=== PATIENT | female | born 1940 | race Asian ===

== ENCOUNTER 2017-10-10 08:11 | Emergency (ER) | payer MEDICARE ==
[~2017-10-10] VITALS: Ht 152.4 cm; Wt 31.8 kg
[~2017-10-10 08:11] MED LIST: ATIVAN
[2017-10-10 08:14] VITALS: BP_SYST 126
[2017-10-10] MEDS ORDERED: ONDANSETRON 4 MG ODT TAB PO ONE (08:45)
[2017-10-10] MEDS ORDERED: MORPHINE 4 MG/ML INJ. SYRINGE IM ONE (08:45)
[2017-10-10 09:46] VITALS: BP_SYST 122
== END 2017-10-10 09:46 | disposition home or self-care (01) ==
LOC: SED 08:11
DX: S13.4XXA Sprain of ligaments of cervical spine, initial encounter (principal); K21.9 Gastro-esophageal reflux disease without esophagitis; Z86.73 Personal history of transient ischemic attack (TIA), and cerebral infarction without residual deficits; X58.XXXA Exposure to other specified factors, initial encounter; Y93.84 Activity, sleeping; Y92.89 Other specified places as the place of occurrence of the external cause; Y99.8 Other external cause status
CPT/HCPCS: 96372; 99283; J2270; Q0162

== ENCOUNTER 2017-12-31 14:25 | Emergency (ER) | payer MEDICARE ==
[~2017-12-31] VITALS: Ht 152.4 cm; Wt 31.8 kg
[2017-12-31 14:40] VITALS: BP_SYST 135
[2017-12-31] MEDS ORDERED: KETOROLAC TROMETHAMINE 15 MG VIAL IM ONE (15:45)
[2017-12-31 16:13] VITALS: BP_SYST 135
== END 2017-12-31 16:12 | disposition home or self-care (01) ==
LOC: SED 14:25
DX: K59.00 Constipation, unspecified (principal); K21.9 Gastro-esophageal reflux disease without esophagitis; Z86.73 Personal history of transient ischemic attack (TIA), and cerebral infarction without residual deficits; R03.0 Elevated blood-pressure reading, without diagnosis of hypertension
CPT/HCPCS: 71045; 74021; 96372; 99284; J1885; 99285

== ENCOUNTER 2020-03-13 09:18 | Emergency (ER) | payer MEDICARE, BC ==
[~2020-03-13] VITALS: Ht 149.9 cm; Wt 45.4 kg
[2020-03-13 09:18] VITALS: BP_SYST 116
[2020-03-13] MEDS ORDERED: MORPHINE 4 MG/ML INJ. SYRINGE IVP ONE (09:45)
[2020-03-13] MEDS ORDERED: ONDANSETRON HCL 4 MG/2 ML VIAL IVP ONE (09:45)
[2020-03-13 10:36] VITALS: BP_SYST 116
== END 2020-03-13 10:36 | disposition home or self-care (01) ==
LOC: SED 09:18
DX: S16.1XXA Strain of muscle, fascia and tendon at neck level, initial encounter (principal); K21.9 Gastro-esophageal reflux disease without esophagitis; Z86.79 Personal history of other diseases of the circulatory system; X58.XXXA Exposure to other specified factors, initial encounter; Y93.89 Activity, other specified; Y92.89 Other specified places as the place of occurrence of the external cause; Y99.8 Other external cause status
CPT/HCPCS: 70450; 72125; 96374; 96375; 99285; J2270; J2405

== ENCOUNTER 2020-04-06 10:57 | Emergency (ER) | payer MEDICARE, BC ==
[~2020-04-06] VITALS: Ht 152.4 cm; Wt 47.6 kg
--- NOTE | 2020-04-06 11:03 | NUR ---
Patient to ER bed 02 to gown for evaluation. Side rails up.
--- NOTE | 2020-04-06 11:05 | NUR ---
Pt bib EMS s/p mechanical fall in [employer] store parking lot. Denies LOC, reports right neck pain. V/S stable, pt is afebrile, Currently resting in bed, will continue to monitor.
[2020-04-06 11:10] VITALS: BP_SYST 147
--- NOTE | 2020-04-06 11:10 | NUR ---
MAGDA [employer] at bedside examining patient.
--- NOTE | 2020-04-06 11:19 | NUR ---
Pt off the unit for CT
[2020-04-06] MEDS: ACETAMINOPHEN 500 MG TABLET PO ONE (11:45)
[2020-04-06 12:34] VITALS: BP_SYST 147
--- NOTE | 2020-04-06 12:35 | NUR ---
Patient given written and verbal discharge instructions and verbalizes understanding. ER MD discussed with patient the results and treatment provided. Patient in stable condition. ID arm band removed. No prescriptions given. Patient educated on pain management and to follow up with PMD. Pain Scale 0. Opportunity for questions provided and answered. Medication side effect fact sheet provided.
== END 2020-04-06 12:35 | disposition home or self-care (01) ==
LOC: SED 10:57
DX: S12.290A Other displaced fracture of third cervical vertebra, initial encounter for closed fracture (principal); S00.81XA Abrasion of other part of head, initial encounter; M54.2 Cervicalgia; K21.9 Gastro-esophageal reflux disease without esophagitis; Z86.79 Personal history of other diseases of the circulatory system; W01.198A Fall on same level from slipping, tripping and stumbling with subsequent striking against other object, initial encounter; Y93.89 Activity, other specified; Y92.89 Other specified places as the place of occurrence of the external cause; Y99.8 Other external cause status
CPT/HCPCS: 70450-TC; 72125-TC; 99285

== ENCOUNTER 2022-11-24 15:58 | Inpatient (IN) | payer BC, MEDICARE ==
[~2022-11-24] VITALS: Ht 152.4 cm; Wt 44.5 kg
[2022-11-24 16:04] VITALS: BP_SYST 124
[2022-11-24 16:47] LABS: BASOPHILS % (AUTO) 0.6 % (0.0-2.0); EOSINOPHILS # (AUTO) 0.1 K/uL (0.0-0.4); EOSINOPHILS % (AUTO) 0.9 % (0.0-4.0); HEMATOCRIT 33.5 % (36-48); HEMOGLOBIN 11.1 g/dL (12.0-16.0); LYMPHOCYTES # (AUTO) 1.1 K/uL (1.0-5.5); LYMPHOCYTES % (AUTO) 15.2 % (20.5-51.5); MEAN CORPUSCULAR HEMOGLOBIN 30 pg (27-31); MEAN CORPUSCULAR HGB CONC 33 % (32-36); MEAN CORPUSCULAR VOLUME 91 fL (79.0-98.0); MONOCYTES # (AUTO) 0.5 K/uL (0.0-1.0); MONOCYTES % (AUTO) 6.3 % (1.7-9.3); NEUTROPHILS # (AUTO) 5.7 K/uL (1.8-7.7); PLATELET COUNT (AUTO) 163 K/uL (130-430); RED BLOOD CELL COUNT(AUTO) 3.68 MIL/uL (4.2-6.2); WHITE BLOOD COUNT (AUTO) 7.4 K/uL (4.8-10.8)
[2022-11-24 16:48] LABS: ANION GAP 9 (5-15); CALCIUM 9.4 mg/dL (8.4-11.0); CHLORIDE 107 mmol/L (98-107); CREATININE 0.85 mg/dL (0.55-1.30); GLUCOSE 130 mg/dL (70-99); UREA NITROGEN, BLOOD 44 mg/dL (8-21)
[2022-11-24 16:54] LABS: INR 0.9 (0.8-1.2); PROTHROMBIN TIME 9.3 SECS (9.5-12.5)
[2022-11-24 16:55] LABS: ALANINE AMINOTRANSFERASE 25 U/L (12-78); ALBUMIN 3.2 g/dL (3.4-4.8); ASPARTATE AMINOTRANSFERASE 17 U/L (10-37); TOTAL BILIRUBIN 0.3 mg/dL (0.0-1.0)
[2022-11-24] MEDS ORDERED: fentaNYL CITRATE/PF 100 MCG/2 ML AMP IVP ONE (17:00)
[2022-11-24] MEDS ORDERED: NACL 0.9% 1,000 ML IV ONE ×2 (17:00→19:15)
[2022-11-24] MEDS ORDERED: ONDANSETRON HCL 4 MG/2 ML VIAL IVP ONE (17:00)
[2022-11-24 18:38] LABS: BILIRUBIN,URINE NEGATIVE (NEGATIVE); CLARITY/URINE CLEAR (CLEAR); COLOR,URINE YELLOW (YELLOW); GLUCOSE,URINE NEGATIVE (NEGATIVE); KETONES,URINE NEGATIVE (NEGATIVE); LEUKOCYTE ESTERASE ,URINE NEGATIVE (NEGATIVE); NITRITE, URINE NEGATIVE (NEGATIVE); PROTEIN URINE 1+ (NEGATIVE); UROBILINOGEN,URINE 0.2 (0.2-1.0)
[2022-11-24 18:47] LABS: BLOOD, URINE TRACE (NEGATIVE)
[2022-11-24 18:49] LABS: BACTERIA,URINE FEW /HPF (None Seen); MUCUS,URINE None Seen /LPF (None Seen); RBC,URINE 0-3 /HPF (0-3); WBC,URINE NONE SEEN /HPF (0-3)
[2022-11-24] MEDS ORDERED: POTASSIUM CHLORIDE 20 MEQ TAB.PRT.SR PO PRN (19:30)
[2022-11-24] MEDS ORDERED: MORPHINE 2 MG/ML INJ. SYRINGE IVP PRN ×2 (19:30)
[2022-11-24] MEDS ORDERED: ZOLPIDEM TARTRATE 5 MG TABLET PO PRN (19:30)
[2022-11-24] MEDS ORDERED: ACETAMINOPHEN 325 MG TABLET PO PRN (19:30)
[2022-11-24] MEDS ORDERED: MUPIROCIN 2% TOPICAL OINTMENT 22 GM NS PRN (19:30)
[2022-11-24] MEDS ORDERED: LORazepam 2 MG/ML VIAL IVP PRN (19:30)
[2022-11-24] MEDS ORDERED: DOCUSATE SODIUM 100 MG CAPSULE PO PRN (19:30)
[2022-11-24] MEDS ORDERED: ONDANSETRON HCL 4 MG/2 ML VIAL IVP PRN (19:30)
[2022-11-24] MEDS ORDERED: MAGNESIUM SULFATE 50 ML IV PRN (19:30)
[2022-11-24] MEDS: NACL 0.9% 1,000 ML IV SCH ×2 (19:49→20:29)
[2022-11-24 23:14] VITALS: BP_SYST 120
[2022-11-25 00:08] VITALS: BP_SYST 120
[2022-11-25 05:38] LABS: BASOPHILS % (AUTO) 0.3 % (0.0-2.0); EOSINOPHILS # (AUTO) 0.1 K/uL (0.0-0.4); EOSINOPHILS % (AUTO) 1.6 % (0.0-4.0); HEMATOCRIT 31.5 % (36-48); HEMOGLOBIN 10.5 g/dL (12.0-16.0); LYMPHOCYTES # (AUTO) 1.5 K/uL (1.0-5.5); LYMPHOCYTES % (AUTO) 22.3 % (20.5-51.5); MEAN CORPUSCULAR HEMOGLOBIN 30 pg (27-31); MEAN CORPUSCULAR HGB CONC 33 % (32-36); MEAN CORPUSCULAR VOLUME 91 fL (79.0-98.0); MONOCYTES # (AUTO) 0.5 K/uL (0.0-1.0); MONOCYTES % (AUTO) 7.2 % (1.7-9.3); NEUTROPHILS # (AUTO) 4.5 K/uL (1.8-7.7); NEUTROPHILS % (AUTO) 68.6 % (40.0-70.0); PLATELET COUNT (AUTO) 141 K/uL (130-430); RED BLOOD CELL COUNT(AUTO) 3.45 MIL/uL (4.2-6.2); RED CELL DISTRIBUTION WIDTH 13.7 % (9.0-15.0); WHITE BLOOD COUNT (AUTO) 6.5 K/uL (4.8-10.8)
[2022-11-25 06:39] LABS: ANION GAP 10 (5-15); CALCIUM 8.8 mg/dL (8.4-11.0); CHLORIDE 110 mmol/L (98-107); CREATININE 0.75 mg/dL (0.55-1.30); GLUCOSE 98 mg/dL (70-99); UREA NITROGEN, BLOOD 29 mg/dL (8-21)
[2022-11-25 08:00] VITALS: BP_SYST 122
[2022-11-25 11:26] VITALS: BP_SYST 107
[2022-11-25 15:11] VITALS: BP_SYST 110
[2022-11-25 20:00] VITALS: BP_SYST 127
[2022-11-25] MEDS: NACL 0.9% 1,000 ML IV SCH (22:41)
[2022-11-25 23:19] VITALS: BP_SYST 127
[2022-11-26 00:45] VITALS: BP_SYST 117
[2022-11-26 06:14] LABS: BASOPHILS % (AUTO) 0.4 % (0.0-2.0); EOSINOPHILS # (AUTO) 0.1 K/uL (0.0-0.4); EOSINOPHILS % (AUTO) 2.2 % (0.0-4.0); HEMATOCRIT 30.3 % (36-48); HEMOGLOBIN 9.9 g/dL (12.0-16.0); LYMPHOCYTES # (AUTO) 1.4 K/uL (1.0-5.5); LYMPHOCYTES % (AUTO) 22.4 % (20.5-51.5); MEAN CORPUSCULAR HEMOGLOBIN 30 pg (27-31); MEAN CORPUSCULAR HGB CONC 33 % (32-36); MEAN CORPUSCULAR VOLUME 92 fL (79.0-98.0); MONOCYTES # (AUTO) 0.4 K/uL (0.0-1.0); MONOCYTES % (AUTO) 6.7 % (1.7-9.3); NEUTROPHILS # (AUTO) 4.3 K/uL (1.8-7.7); NEUTROPHILS % (AUTO) 68.3 % (40.0-70.0); PLATELET COUNT (AUTO) 129 K/uL (130-430); RED CELL DISTRIBUTION WIDTH 13.8 % (9.0-15.0); WHITE BLOOD COUNT (AUTO) 6.3 K/uL (4.8-10.8)
[2022-11-26 06:15] LABS: ANION GAP 8 (5-15); CALCIUM 8.4 mg/dL (8.4-11.0); CHLORIDE 111 mmol/L (98-107); CREATININE 0.72 mg/dL (0.55-1.30); GLUCOSE 101 mg/dL (70-99); UREA NITROGEN, BLOOD 28 mg/dL (8-21)
[2022-11-26 08:00] VITALS: BP_SYST 123
[2022-11-26 11:23] VITALS: BP_SYST 132
[2022-11-26] MEDS: NACL 0.9% 1,000 ML IV SCH (14:59)
[2022-11-26 15:10] VITALS: BP_SYST 135
== END 2022-11-26 20:00 | DRG 48 ==
LOC: SED 15:58 → STU 19:04 → SMU 11-25 12:07
PROVIDERS: ADMIT General Practice; ATTEND General Practice
DX: G90.9 Disorder of the autonomic nervous system, unspecified (principal); G93.41 Metabolic encephalopathy; E43 Unspecified severe protein-calorie malnutrition; E86.0 Dehydration; Z20.822 Contact with and (suspected) exposure to COVID-19; K21.9 Gastro-esophageal reflux disease without esophagitis; Z68.1 Body mass index [BMI] 19.9 or less, adult; Z86.73 Personal history of transient ischemic attack (TIA), and cerebral infarction without residual deficits; R53.2 Functional quadriplegia
CPT/HCPCS: 36415; 70450-TC; 71045; 72125-TC; 72170-TC; 73552; 76376; 80048; 80053; 81000; 83037; 83605; 83735; 83880; 84484; 85025; 85610-TC; 85730-TC; 87040; 87086; 93005; 95816; 96361; 96374; 96375; 97110-GP; 97112-GP; 97530-GP; 99285; G0378; J2060; J2405; J3010; J7030